=== PATIENT | male | born 1970 | race Two or more races ===

== ENCOUNTER 2018-12-01 15:38 | Emergency (ER) | payer MEDICAID ==
[~2018-12-01] VITALS: Ht 172.7 cm; Wt 68.0 kg
[2018-12-01 15:57] VITALS: BP 128/94
[2018-12-01] MEDS ORDERED: Bacitracin Oint UD TOPIC ONE (16:00)
--- NOTE | 2018-12-01 16:02 | NUR ---
ED Nurse Note:pt. has traumatic injury wih skin tear on right forearm, wound was cleaned with peroxide and dry dressing applied with bacitricin
[2018-12-01] MEDS ORDERED: Tetanus/Diptheria/Pertussis IM ONE ×2 (16:06→16:15)
--- NOTE | 2018-12-01 16:10 | Emergency Room Report ---
History of Present Illness General Chief Complaint: Laceration Source: Patient Present Illness HPI 48-year-old male with no significant past medical history he is complaining of abrasion on the right forearm after a metal fell and cut his forearm one day ago. Denies pain, tingling, numbness. Patient reports he cleaned the wound very well after the incident denies any discharge from the wound. Denies chest pain, SOB, palpitations, and all this with her symptoms. Patient wants a tetanus shot as he is not intoxicated and once his abrasion to be evaluated. Denies fever and chills planning of 3 out of 10 pain at the site of abrasion with no radiation. Has not taken any medication for pain Allergies: Coded Allergies: No Known Allergies (Unverified , 12/01/18) Patient History Immunizations: other - Tdap today Reviewed Nursing Documentation: PMH: Agreed; PSxH: Agreed Nursing Documentation-PM Past Medical History: No Stated History Review of Systems All Other Systems: negative except mentioned in HPI Physical Exam Vital Signs Date Time Temp Pulse Resp B/P (MAP) Pulse Ox O2 Delivery O2 Flow Rate FiO2 12/01/18 15:46 98.2 65 15 128/94 97 Room Air Sp02 EP Interpretation: reviewed, normal General Appearance: normal inspection, well appearing, no apparent distress Head: normocephalic, atraumatic Eyes: bilateral eye normal inspection, bilateral eye PERRL ENT: normal ENT inspection Neck: normal inspection, supple Respiratory: normal inspection, chest non-tender, lungs clear, no rhonchi, no wheezing Cardiovascular #1: normal inspection, regular rate, rhythm, no edema, no gallop Cardiovascular #2: 2+ radial (R), 2+ radial (L) Gastrointestinal: normal inspection, normal bowel sounds, non tender, soft Rectal: deferred Genitourinary: deferred Musculoskeletal: normal inspection, back normal, other - able to move right forearm with no pain and range of motion is intact Neurologic: normal inspection, alert, oriented x3 Psychiatric: normal inspection, judgement/insight normal, memory normal Skin: abrasions - infected abrasion on the right volar forearm Lymphatic: normal inspection, no adenopathy Medical Decision Making PA Attestation all diagnosis and treatment plans are reviewed and discussed with supervising physician Dr. Cordoba Diagnostic Impression: Primary Impression: Abrasion of right forearm Additional Impression: Infected abrasion of right forearm ER Course 48-year-old male with no significant past medical history he is complaining of abrasion on the right forearm after a metal fell and cut his forearm one day ago. Denies pain, tingling, numbness. Patient reports he cleaned the wound very well after the incident denies any discharge from the wound. Denies chest pain, SOB, palpitations, and all this with her symptoms. Patient wants a tetanus shot as he is not intoxicated and once his abrasion to be evaluated. Denies fever and chills planning of 3 out of 10 pain at the site of abrasion with no radiation. Has not taken any medication for pain Ddx considered but are not limited to aspiration, abrasion, infected abrasion Vital signs: are WNL, pt. is afebrile H&PE are most consistent with infected abrasion ORDERS: was cleaned and dressed with bacitracin, Keflex, ibuprofen ED INTERVENTIONS: wound clean and dressed DISCHARGE: At this time pt. is stable for d/c to home. Will provide printed patient care instructions, and any necessary prescriptions. Care plan and follow up instructions have been discussed with the patient prior to discharge. Last Vital Signs Date Time Temp Pulse Resp B/P (MAP) Pulse Ox O2 Delivery O2 Flow Rate FiO2 12/01/18 15:57 98.2 70 15 128/94 97 Room Air Disposition: HOME, SELF-CARE Condition: Stable Scripts Ibuprofen* (MOTRIN*) 600 Mg Tablet 600 MG ORAL Q8H PRN for For Pain, #30 TAB 0 Refills Prov: Penny Diaz 12/01/18 Cephalexin* (KEFLEX*) 500 Mg Capsule 500 MG ORAL EVERY 6 HOURS for 7 Days, #28 CAP Prov: Penny Diaz 12/01/18 Patient Instructions: Abrasion, [id number], Wound Infection, [id number] Additional Instructions: follow up with primary care provider for wound check after 2 days take medication as directed if fever chills return to the emergency room Penny Diaz Dec 01, 2018 16:10
[2018-12-01] MEDS ORDERED: CEPHALEXIN500 MG ORAL (16:11)
[2018-12-01] MEDS ORDERED: IBUPROFEN600 MG ORAL (16:11)
--- NOTE | 2018-12-01 16:21 | NUR ---
ED Nurse Note:pt. received d/c instructions with prescriptions and left ER with steady gait
== END 2018-12-01 16:27 | disposition home or self-care (01) ==
LOC: EMR 16:20
DX: S50.811A Abrasion of right forearm, initial encounter (principal); W45.8XXA Other foreign body or object entering through skin, initial encounter; Y92.89 Other specified places as the place of occurrence of the external cause; L08.9 Local infection of the skin and subcutaneous tissue, unspecified; Z23 Encounter for immunization
CPT/HCPCS: 90471; 90715; 99282